=== PATIENT | male | born 2000 | race Two or more races ===

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

== ENCOUNTER 2021-11-23 00:28 | Emergency (ER) | payer SELFPAY ==
[~2021-11-23] VITALS: Ht 175.3 cm; Wt 72.6 kg
[2021-11-23 00:30] VITALS: BP 122/60
[2021-11-23 01:18] LABS: Urine Bacteria NONE SEEN /hpf (None Seen); Urine Blood TRACE /uL (Negative); Urine Specific Gravity 1.017 (1.001-1.035); Urine WBC 23 /hpf (0 - 3); Urine WBC Clumps PRESENT /hpf (None Seen)
[2021-11-23] MEDS ORDERED: cefTRIAXone SOD 500 MG VL IM ONE (02:00)
[2021-11-23] MEDS ORDERED: PER60TP TOP (02:00)
[2021-11-23] MEDS ORDERED: HYD1TP TOP (02:00)
[2021-11-23] MEDS ORDERED: DOXY-286 PO (02:01)
[2021-11-23] MEDS ORDERED: DIPH-515 GT (02:01)
== END 2021-11-23 02:23 | disposition home or self-care (01) ==
LOC: ER 00:34
DX: R21 Rash and other nonspecific skin eruption (principal); R30.0 Dysuria; Z79.899 Other long term (current) drug therapy
CPT/HCPCS: 81001; 96372; 99283; J0696